=== PATIENT | female | born 1975 | race American Indian/Alaskan Native ===

== ENCOUNTER 2018-07-16 09:07 | Day surgery (SDC) | payer BC, MEDICAID ==
--- NOTE | 2018-07-16 09:40 | Anesthesia Consultation ---
Anesthesia Consult and Med Hx Date of service: 07/16/18 - Airway Anesthetic Teeth Evaluation: Good ROM Head & Neck: Adequate Mental/Hyoid Distance: Adequate Mallampati Class: Class II Intubation Access Assessment: Probably Good - Pulmonary Exam CTA: Yes - Cardiac Exam Cardiac Exam: RRR - Pre-Operative Health Status ASA Pre-Surgery Classification: ASA3 Proposed Anesthetic Plan: MAC - Pulmonary Hx Sleep Apnea: Yes (CPAP) - Cardiovascular System Hx Hypertension: Yes - Other Systems Hx Obesity: Yes
--- NOTE | 2018-07-16 09:40 | Anesthesia Day of Surgery ---
Anesthesia Day of Surgery - Day of Surgery Patient Examined: Yes Patient H&P Reviewed: Yes Patient is NPO: Yes
[2018-07-16] MEDS ORDERED: NACL 0.9% 1000 ML 1,000 ML IV SCH (10:00)
[2018-07-16] MEDS ORDERED: DIPRIVAN 10 MG/ML IV ONE ×4 (10:21→10:25)
[2018-07-16] MEDS ORDERED: VERSED ONE (10:24)
[2018-07-16] MEDS ORDERED: XYLOCAINE 2% INFILTRATI ONE (10:34)
--- NOTE | 2018-07-16 10:58 | Procedure Note ---
Date of procedure: 07/16/18 Pre-op diagnosis: Colon Polyp Screening/ F/H/O GI Cancer (father) Post-op diagnosis: other (Multiple, Small Rectal Polyps (possibly Hyperplastic)/ Rest of the Colon was normal) Procedure: Colonoscopy with Biopsy Anesthesia: MAC Surgeon: WANDER MARTINEZ Estimated blood loss: minimal Pathology: list Specimen disposition: to lab Condition: stable Disposition: same day (Avoid aspirin and NSAID for 5 days and follow up in 1 to 2 weeks ([phone]). Resume home medication, except for aspirin and NSAID for 5 days.)
[2018-07-16 11:26] VITALS: BP 130/75
--- NOTE | 2018-07-16 11:47 | Post Anesthesia Evaluation ---
- Post Anesthesia Evaluation Patient Participated: Yes Airway Patent: Yes Stable Respiratory Function: Yes Temp > 96.8F: Yes Pain Manageable: Yes Adequeate Hydration: Yes Anesthesia Complications: No
--- NOTE | 2018-07-16 15:18 | Operative Report ---
PROCEDURE: Colonoscopy with biopsy done. INDICATIONS: This is a 43-year-old obese -[place] female with an underlying history of hypertension, diabetes mellitus and a history of GI cancer. The patient's father had GI cancer. Colonoscopy was done as part of colon polyp screening procedure was done after getting informed consent with MAC anesthesia. Initial rectal exam was unremarkable. Instrument was passed through rectum onto the cecum, which was identified with ileocecal valve and the appendiceal orifice. Visualization was fair to good. Cecum, ascending colon, transverse colon, descending colon, and sigmoid showed normal mucosa. There was no evidence of any polyps, colitis or diverticular disease. In the rectum and in the rectosigmoid area, there were several small polyps, possibly hyperplastic in type that were removed by cold biopsy. There was minimal bleeding from the biopsy sites and the rectum did not show any internal hemorrhoid on the retroverted view. ASSESSMENT: Colon polyp screening, family history of gastrointestinal cancer, the patient's father had gastrointestinal cancer. Multiple small possibly hyperplastic polyps in the rectum. No diverticular disease, no internal hemorrhoids. There was minimal bleeding from the biopsy sites. No complications associated with the procedure. The patient will be asked to follow up in the office in 1-2 weeks' time and RNEdel was in the room throughout the entirety of the procedure. JOB# [id number] MARILU/MYRA
== END 2018-07-16 09:08 | disposition home or self-care (01) ==
LOC: GIO 09:07
DX: Z12.11 Encounter for screening for malignant neoplasm of colon (principal); D12.8 Benign neoplasm of rectum; E78.00 Pure hypercholesterolemia, unspecified; I10 Essential (primary) hypertension; G47.30 Sleep apnea, unspecified; E66.9 Obesity, unspecified; Z68.45 Body mass index [BMI] 70 or greater, adult; Z90.710 Acquired absence of both cervix and uterus; Z80.0 Family history of malignant neoplasm of digestive organs; Z98.890 Other specified postprocedural states; Z85.09 Personal history of malignant neoplasm of other digestive organs; Z87.891 Personal history of nicotine dependence; Z79.84 Long term (current) use of oral hypoglycemic drugs; Z79.899 Other long term (current) drug therapy
CPT/HCPCS: 45380; 82962; 88305; J2250; J2704; J7030

== ENCOUNTER 2018-07-19 08:09 | Outpatient (CLI) | payer BC ==
--- NOTE | 2018-07-19 09:08 | XRay Report ---
LEFT HAND, 3 views: History: Pain in left hand. The bony architecture is intact. Bony alignment is normal. No soft tissue abnormalities are seen. The joint spaces appear preserved. IMPRESSION: Unremarkable left hand.
--- NOTE | 2018-07-19 09:08 | XRay Report ---
LEFT WRIST, 4 views: HISTORY: Pain. Routine views demonstrate the carpal bones to be well mineralized with well preserved bony mineralization and interosseous joint spaces. The carpal and adjacent articular bones have normal contours. The surrounding soft tissues are unremarkable. IMPRESSION: Unremarkable left wrist.
--- NOTE | 2018-07-19 12:53 | Mammography Report ---
Bilateral mammogram: No previous studies are available. CAD study utilized. Findings: Heterogeneous breast parenchyma bilaterally. 2 mm focal asymmetry outer right breast. Benign calcifications. Normal axilla. Impression: Focal 3 mm dense asymmetry outer right breast. Comparison with previous studies is recommended. If previous studies are not available spot compression and sonographic examination may be advised. BI-RADS CATEGORY: 0 = Needs additional imaging evaluation ACR BI-RADS MAMMOGRAPHIC CODES: 0 = Needs additional imaging evaluation; 1 = Negative; 2 = Benign; 3 = Probably benign; 4 = Suspicious; 5 = Malignant; 6 = Known biopsy-proven malignancy COMMENT: 1. Dense breast tissue, i.e., adenosis, fibrocystic changes, etc., may obscure an underlying neoplasm. 2. Approximately 10% of cancers are not detected with mammography. 3. A negative mammography report should not delay biopsy if a clinically suspicious mass is present. COMMENT: [facility].
== END 2018-07-19 08:10 | disposition home or self-care (01) ==
LOC: MAMMO 08:09
PROVIDERS: ATTEND Clinical Nurse Specialist Adult Health
DX: Z12.31 Encounter for screening mammogram for malignant neoplasm of breast (principal); M25.532 Pain in left wrist; M79.642 Pain in left hand; E78.00 Pure hypercholesterolemia, unspecified; I10 Essential (primary) hypertension; E66.9 Obesity, unspecified; Z90.710 Acquired absence of both cervix and uterus; Z87.891 Personal history of nicotine dependence
CPT/HCPCS: 77067

== ENCOUNTER 2019-02-24 08:05 | Outpatient (CLI) | payer BC ==
--- NOTE | 2019-02-24 09:46 | Ultrasound Report ---
LEFT DIGITAL DIAGNOSTIC MAMMOGRAM WITH CAD -- 02/24/2019 LEFT COMPLETE BREAST ULTRASOUND INDICATION: Left breast lump and pain. TECHNIQUE: Digital left mammographic imaging was performed. Magnification views were obtained. This examination was interpreted with the benefit of Computer-Aided Detection (CAD) analysis. COMPARISON: 08/16 2018 FINDINGS: Breast Density: The breast is heterogeneously dense, which may obscure small masses. MAMMOGRAPHIC FINDINGS: There is no evidence of dominant mass, suspicious calcifications or architectu ral distortion in the left breast. ULTRASOUND FINDINGS: Complete sonographic evaluation of all 4 quadrants and retroareolar region was p erformed. A benign cyst versus focal duct ectasia at 2:00 5 cm from the nipple measures 14 x 8 x 2 mm. No other cyst and no mass or suspicious shadowing. IMPRESSION: A benign cyst versus benign focal duct ectasia at 2:00 left breast. The left breast is ot herwise negative. Follow up recommendation: Routine yearly BI-RADS Category 2: Benign. A "normal" or negative report should not discourage follow up or biopsy of a clinically significant f inding. A written summary of these findings will be mailed to the patient. The patient will be entered into a mammography reporting system which will generate a reminder letter for the patient's next appointmen t at the appropriate interval. According to the [employer], yearly mammograms are recommended starting at age 40 and continuing as long as a woman is in good health. Breast MRI is recommended for women with an tomas roximately 20-25% or greater lifetime risk of breast cancer, including women with a strong family his tory of breast or ovarian cancer and women who have been treated for Hodgkin's disease. Signer Name: Santo Barry MD Signed: 02/24/2019 9:42 AM Workstation Name: [id number]
== END 2019-02-24 08:06 | disposition home or self-care (01) ==
LOC: MAMMO 08:05
PROVIDERS: ATTEND Internal Medicine
DX: N64.4 Mastodynia (principal); D24.2 Benign neoplasm of left breast; I10 Essential (primary) hypertension; E78.00 Pure hypercholesterolemia, unspecified; Z90.710 Acquired absence of both cervix and uterus